=== PATIENT | female | born 1945 ===

== ENCOUNTER 2018-04-02 08:22 | Day surgery (SDC) | payer MEDICARE, OTHER ==
[2018-03-30 09:27] VITALS: BMI 36.1
[2018-04-02 09:15] LABS: BASO # 0.03 K/mm3 (0.0-2.0); BASO % 0.4 % (0.0-3.0); BLOOD UREA NITROGEN 17 mg/dL (7-21); CALCIUM 9.3 mg/dL (8.4-10.5); EOS # 0.1 (0.0-0.7); GFR AFRICAN-AMERICAN > 60; GFR NON-AFRICAN AMERICAN > 60; GRAN # 4.83 (1.4-6.5); GRAN % 59.4 % (50.0-68.0); HEMOGLOBIN 12.7 g/dL (12.0-16.0); LYMPH # 2.8 (1.2-3.4); LYMPH % 33.9 % (22.0-35.0); MEAN CELL VOLUME 85.2 fl (80.0-105.0); MEAN CORPUSCULAR HEMOGLOBIN 27.7 pg (25.0-35.0); MEAN CORPUSCULAR HGB CONC 32.5 g/dl (31.0-37.0); MEAN PLATELET VOLUME 11.5 fl (7.0-11.0); MONO # 0.4 (0.1-0.6); MONO % 5.3 % (1.0-6.0); RBC 4.59 10^6/uL (3.5-6.1); RED CELL DISTRIBUTION WIDTH 13.9 % (11.5-14.5); WHITE BLOOD COUNT 8.1 10^3/ul (4.5-11.0)
[2018-04-02 09:29] LABS: INR 1.04 (0.93-1.08); PARTIAL THROMBOPLASTIN TIME 31.7 Seconds (25.1-36.5)
[2018-04-02] MEDS ORDERED: Midazolam 2 MG/2 ML VIAL ONE (11:26)
[2018-04-02] MEDS ORDERED: Lidocaine 1% Inj (20ml) ONE (11:27)
[2018-04-02] MEDS ORDERED: Oxycodone/Acetaminophen 5/325 mg Tab PO PRN (12:07)
[2018-04-02] MEDS ORDERED: Sodium Chloride 0.45% 1,000 ML IV SCH (12:15)
[2018-04-02] MEDS ORDERED: Oxycodone/Acetaminophen 5/325 mg Tab ONE (12:59)
[2018-04-02 13:32] VITALS: RESP 18; TEMP 97.8; O2SAT 96
[2018-04-02 14:52] VITALS: BP 120/58; PULSE 71
--- NOTE | 2018-04-02 16:54 | US ---
PROCEDURE: Ultrasound-guided right thyroid fine needle aspiration biopsy. CLINICAL HISTORY: Bilateral small thyroid nodules. Dominant 13 mm complex right upper pole nodule. Evaluate for malignancy. PHYSICIAN(S): Cedric Mendoza M.D. TECHNIQUE: The relative risks and indications for the procedure were explained to the patient and consent obtained. The patient was placed supine on the stretcher with the neck extended and preliminary sonography of the thyroid performed. This reveal a dominant 13 mm complex cystic nodule in the right upper pole. The neck was prepped and draped in the usual sterile fashion. Conscious sedation and monitoring were provided throughout the procedure by a nurse. 1% Xylocaine was used to anesthetize the skin and soft tissues at the access site. Three passes with a 22-gauge needle were performed under ultrasound guidance for fine needle aspiration of the 13 mm complex nodule in the right thyroid. The slides were reviewed by pathology and deemed adequate. The patient tolerated the procedure well. IMPRESSION: 1. Ultrasound guided fine needle aspiration of a 13 mm complex cysticnodule in the right thyroid.
== END 2018-04-02 14:20 | disposition home or self-care (01) ==
LOC: SDS 08:22
PROVIDERS: ATTEND Radiology Vascular & Interventional Radiology
DX: E04.1 Nontoxic single thyroid nodule (principal); I10 Essential (primary) hypertension; E11.9 Type 2 diabetes mellitus without complications; Z79.4 Long term (current) use of insulin; Z85.42 Personal history of malignant neoplasm of other parts of uterus
CPT/HCPCS: 10022; 36415; 76942; 80048; 82948; 85025; 85610; 85730; 88173; 88305; 99152; J2250; J2405; J3010; J7030